=== PATIENT | male | born 1980 | race Asian ===

== ENCOUNTER 2019-07-13 16:02 | Inpatient (IN) | payer BC ==
[~2019-07-13] VITALS: Ht 182.9 cm; Wt 127.9 kg
[2019-07-13 16:10] LABS: Calcium, Ionized (POC) 1.01 mmol/L (1.10-1.46); Chloride (POC) 102 mmol/L (98-108); Creatinine (POC) 9.2 mg/dL (0.8-1.3); Glucose (ISTAT POC) 362 mg/dL (70-99); Hemoglobin (POC) 13.3 g/dL (13.5-17.5); Potassium (POC) 4.5 mmol/L (3.5-5.5); Sodium (POC) 137 mmol/L (135-148); Total CO2 (POC) 26 mmol/L (21-32)
[2019-07-13 16:18] LABS: Bicarbonate Venous 15.9 mmol/L (24.0-30.0); PCO2 Venous 59.3 mmHg (38-42); pH Blood Venous 7.12 (7.34-7.37)
[2019-07-13 16:42] LABS: BASOPHILS ABSOLUTE AUTO 0.12 K/mm3 (0.00-0.23); BASOPHILS PERCENT AUTO 1 % (0-2); EOSINOPHILS ABSOLUTE AUTO 0.44 K/mm3 (0.00-0.68); EOSINOPHILS PERCENT AUTO 3 % (0-6); Hematocrit 40.5 % (37.0-53.0); Hemoglobin 12.1 g/dL (13.5-17.5); IMMATURE GRAN ABSOLUTE AUTO 0.73 K/mm3 (0.00-0.10); IMMATURE GRAN PERCENT AUTO 5 % (0-1); LYMPHOCYTES ABSOLUTE AUTO 5.68 K/mm3 (0.84-5.20); LYMPHOCYTES PERCENT AUTO 39 % (21-46); MONOCYTES ABSOLUTE AUTO 0.96 K/mm3 (0.16-1.47); MONOCYTES PERCENT AUTO 7 % (4-13); Mean Corpuscular HGB 29.9 pg (26.0-34.0); Mean Corpuscular HGB Conc 29.9 g/dL (31.5-36.5); Mean Corpuscular Volume 100 fL (80-100); Mean Platelet Volume 12.6 fL (9.1-12.4); NEUTROPHILS ABSOLUTE AUTO 6.71 K/mm3 (1.96-9.15); NEUTROPHILS PERCENT AUTO 46 % (41-73); NRBC ABSOLUTE 0.29 K/mm3 (0.00-0.02); Platelet Count 276 K/mm3 (150-400); RDW Coefficient Variation 14.5 % (11.7-14.2); RDW Standard Deviation 52.7 fL (35.1-46.3); Red Blood Cell Count 4.05 M/mm3 (4.30-5.90); White Blood Cell Count 14.64 K/mm3 (4.00-11.30)
[2019-07-13 17:05] LABS: PCO2 Arterial 53.1 mmHg (35-45); pH Blood Arterial 7.26 (7.35-7.45)
[2019-07-13 17:09] LABS: Magnesium, Blood 3.3 mg/dL (1.6-2.4); Troponin I <0.015 ng/mL (0.000-0.040)
[2019-07-13 17:14] LABS: Alanine Aminotransfer (ALT/SGP 31 U/L (12-78); Albumin, Blood 2.6 g/dL (3.4-5.0); Albumin/Globulin Ratio 0.5 (0.8-1.8); Alk Phos 101 U/L (50-136); Anion Gap 17 mmol/L (6-16); Aspartate Aminotrans (AST/SGOT 46 U/L (12-37); Bilirubin, Total 0.2 mg/dL (0.1-1.0); Blood Urea Nitrogen 61 mg/dL (8-24); CO2, Blood 25 mmol/L (21-32); Calcium, Blood 9.3 mg/dL (8.5-10.1); Chloride, Blood 97 mmol/L (98-108); Creatinine, Blood 8.73 mg/dL (0.60-1.20); Globulin, Blood 5.1 g/dL (2.2-4.0); Glomerular Filtration Rate 6 (60-); Glucose, Blood 362 mg/dL (70-99); Potassium, Blood 4.5 mmol/L (3.5-5.5); Sodium, Blood 139 mmol/L (136-145); Total Protein, Blood 7.7 g/dL (6.4-8.2)
[2019-07-13 17:15] LABS: International Normalized Ratio 1.07; Prothrombin Time Results 11.3 Sec (9.7-11.5)
[2019-07-13 18:24] LABS: BASOPHILS ABSOLUTE AUTO 0.06 K/mm3 (0.00-0.23); BASOPHILS PERCENT AUTO 0 % (0-2); EOSINOPHILS ABSOLUTE AUTO 0.12 K/mm3 (0.00-0.68); EOSINOPHILS PERCENT AUTO 1 % (0-6); Hematocrit 32.2 % (37.0-53.0); Hemoglobin 10.2 g/dL (13.5-17.5); IMMATURE GRAN ABSOLUTE AUTO 0.33 K/mm3 (0.00-0.10); IMMATURE GRAN PERCENT AUTO 2 % (0-1); LYMPHOCYTES ABSOLUTE AUTO 1.08 K/mm3 (0.84-5.20); LYMPHOCYTES PERCENT AUTO 6 % (21-46); MONOCYTES ABSOLUTE AUTO 0.74 K/mm3 (0.16-1.47); MONOCYTES PERCENT AUTO 4 % (4-13); Mean Corpuscular HGB 29.7 pg (26.0-34.0); Mean Corpuscular HGB Conc 31.7 g/dL (31.5-36.5); Mean Platelet Volume 12.1 fL (9.1-12.4); NEUTROPHILS ABSOLUTE AUTO 15.89 K/mm3 (1.96-9.15); NEUTROPHILS PERCENT AUTO 87 % (41-73); Platelet Count 216 K/mm3 (150-400); RDW Coefficient Variation 14.5 % (11.7-14.2); RDW Standard Deviation 49.3 fL (35.1-46.3); Red Blood Cell Count 3.43 M/mm3 (4.30-5.90); White Blood Cell Count 18.22 K/mm3 (4.00-11.30)
[2019-07-13 18:26] LABS: Mean Corpuscular Volume 94 fL (80-100)
--- NOTE | 2019-07-13 18:48 | NUR ---
Echocardiogram completed.
[2019-07-13 18:59] LABS: PCO2 Arterial 55.7 mmHg (35-45); PO2 Arterial 63.6 mmHg (80-100); pH Blood Arterial 7.32 (7.35-7.45)
[2019-07-13 20:08] LABS: Albumin, Blood 2.5 g/dL (3.4-5.0); Albumin/Globulin Ratio 0.5 (0.8-1.8); Bilirubin, Total 0.4 mg/dL (0.1-1.0); Bun/Creatinine Ratio 6.8 (12.0-20.0); Calcium, Blood 8.5 mg/dL (8.5-10.1); Creatinine, Blood 9.44 mg/dL (0.60-1.20); Globulin, Blood 4.8 g/dL (2.2-4.0); Potassium, Blood 4.6 mmol/L (3.5-5.5); Total Protein, Blood 7.3 g/dL (6.4-8.2)
--- NOTE | 2019-07-13 20:13 | NUR ---
DIALYSIS WENT TO ER,TOLD THEY WOULD BE BRINGING PT TO ICU SOON, TOOK MY MACHINE TO ICU. HOOKED IT UP AND IT WENT THROUGH TEST. ASKED TO WAIT TO HOOK HIM UP UNTIL THEY GOT A POWER GLIDE IN. CONNECTED HIM TO DIALYSIS SOON THE POWER GLIDE WAS IN.
--- NOTE | 2019-07-13 22:30 | NUR ---
ADMIT NOTE: ASSUMED CARE OF PT AT 1910, RECEVIED REPORT FROM KAYODE NORTON AT BEDSIDE. PT ARRIVED TO THE UNIT ON A STRETCHER WITH ER NURSE PARKER AND RT ROLANDO. PT WAS THEN TRANSFERD OVER TO HOSPITAL BED WITH A SLIDER SHEET. PT WAS THEN PLACED ON VENTILATOR WITH SETTINGS AT AC12/500/12/100%. PT ALSO REQUIRED SUCTIONING ON ARRIVAL. PT HAD TWO 18G IV'S BOTH LOCATED IN AC'S, BOTH WERE DIFFICULT TO FULSH, THEREFORE A PICC WAS PLACED DUE TO MULTIPLE MEDICATIONS NEEDING TO BE INFUSED. PT WAS THEN PLACED ON 30MCG/KG/MIN OF PROPOFOL AT 192 WHICH WAS THEN INCREASED TO 50MCG AT 1927 DUE TO ELEVATED BLODD PRESSURE. PT HAS A TEMP OWENS IN PLACE WHICH IS DRAINING YELLOW CLEAR URINE. DIALYSIS SETTING UP IN THE ROOM. WILL CONTINUE TO MONITOR PT T/O SHIFT.
[2019-07-13 23:57] LABS: Source, Urine Catheter
[2019-07-13 23:59] LABS: Bilirubin, Urine Neg (Neg); Blood, Urine 5+ (Neg); Glucose Qualitative, Urine 4+ (Neg); Ketones, Urine 1+ (Neg); Leukocyte Esterase, Urine 1+ (Neg); Nitrite, Urine Neg (Neg); Protein, Urine 4+ (Neg); Urobilinogen, Urine NORM (Normal)
--- NOTE | 2019-07-14 | NUR ---
UPDATE NOTE: AT 2114 PT'S PROPOFOL WAS DECREASED TO 35MCG/KG/MIN DUE TO LOWERING BP. AT 2239 INCREASED TO 50MCG DUE TO ELEVATED BP. PHYSICAN WAS CALLED REGARDING ELEVATED BP, ORDERS WERE GIVEN AND PT WAS MEDICATED PER EMAR. PT WAS DECREASED TO 60%FIO2 WITH SP02 ABOVE 90%
[2019-07-14 00:11] LABS: Appearance, Urine Hazy (Clear); Color, Urine Yellow (P-Yellow); U Amphetamine Screen Not Detected; U Barbituate Screen Not Detected; U Benzodiazapine Screen Not Detected; U Buprenorphine Screen Not Detected; U Cannabinoids Screen Not Detected; U Cocaine Screen Not Detected; U Methadone Screen Not Detected; U Methamphetamine Screen Not Detected; U Opiates Screen Not Detected; U Oxycodone Screen Not Detected; U Phencyclidine Screen Not Detected; U Propoxyphene Screen Not Detected
[2019-07-14 00:13] LABS: Bacteria Few /hpf; Red Blood Cells, Urine TNTC /hpf (0-2); Squamous Epithelial Cells Not Seen /hpf (Few)
[2019-07-14 00:40] LABS: Albumin, Blood 2.3 g/dL (3.4-5.0); Albumin/Globulin Ratio 0.5 (0.8-1.8); Bilirubin, Total 0.4 mg/dL (0.1-1.0); Bun/Creatinine Ratio 7.2 (12.0-20.0); Calcium, Blood 8.1 mg/dL (8.5-10.1); Creatinine, Blood 7.75 mg/dL (0.60-1.20); Globulin, Blood 4.5 g/dL (2.2-4.0); Magnesium, Blood 2.5 mg/dL (1.6-2.4); Potassium, Blood 4.2 mmol/L (3.5-5.5); Total Protein, Blood 6.8 g/dL (6.4-8.2)
[2019-07-14] MEDS ORDERED: GABA100 PO (01:09)
[2019-07-14] MEDS ORDERED: Calcium Acetat667 MG PO ×3 (01:11→01:16)
[2019-07-14] MEDS ORDERED: MERIBIN5 MG PO (01:11)
[2019-07-14] MEDS ORDERED: LOSA50 PO (01:12)
[2019-07-14] MEDS ORDERED: THERA-D2000 UNIT PO (01:13)
[2019-07-14] MEDS ORDERED: NEBI5 PO (01:14)
[2019-07-14] MEDS ORDERED: Catapres0.2 MG PO (01:15)
[2019-07-14] MEDS ORDERED: FISH OIL OMEGA1 EAC2 PO (01:16)
[2019-07-14] MEDS ORDERED: Zocor20 MG PO (01:17)
[2019-07-14] MEDS ORDERED: FURO40 PO (01:18)
[2019-07-14] MEDS ORDERED: TRAM50 PO (01:19)
[2019-07-14] MEDS ORDERED: INSULANPEN SC ×2 (01:20)
[2019-07-14] MEDS ORDERED: Humalog100 UNIT/1 SC (01:21)
[2019-07-14 01:22] LABS: Adenovirus Not Detected (NOT DETECT); Bordetella pertussis Not Detected (NOT DETECT); Chlamydophila pneumoniae Not Detected (NOT DETECT); Coronavirus 229E Not Detected (NOT DETECT); Coronavirus HKU1 Not Detected (NOT DETECT); Coronavirus NL63 Not Detected (NOT DETECT); Coronavirus OC43 Not Detected (NOT DETECT); Human Metapneumovirus Not Detected (NOT DETECT); Human Rhinovirus/Enterovirus Not Detected (NOT DETECT); Influenza A Not Detected (NOT DETECT); Influenza A/2009-H1 Not Detected (NOT DETECT); Influenza A/H1 Not Detected (NOT DETECT); Influenza A/H3 Not Detected (NOT DETECT); Influenza B Not Detected (NOT DETECT); Mycoplasma pneumoniae Not Detected (NOT DETECT); Parainfluenza Virus 1 Not Detected (NOT DETECT); Parainfluenza Virus 2 Not Detected (NOT DETECT); Parainfluenza Virus 3 Not Detected (NOT DETECT); Parainfluenza Virus 4 Not Detected (NOT DETECT); Respiratory Syncytial Virus Not Detected (NOT DETECT)
[2019-07-14] MEDS ORDERED: Aspirin EC81 MG PO (01:22)
[2019-07-14] MEDS ORDERED: GLIP5 PO (01:23)
[2019-07-14] MEDS ORDERED: PRAV20 PO (01:23)
--- NOTE | 2019-07-14 04:50 | NUR ---
BP/CALL TO MD DR. CAGE NOTIFIED OF CONTINUED HYPERTENSION. NEW ORDERS RECEIVED.
[2019-07-14 05:34] LABS: BASOPHILS ABSOLUTE AUTO 0.01 K/mm3 (0.00-0.23); BASOPHILS PERCENT AUTO 0 % (0-2); EOSINOPHILS PERCENT AUTO 0 % (0-6); Hematocrit 30.1 % (37.0-53.0); Hemoglobin 10.1 g/dL (13.5-17.5); IMMATURE GRAN ABSOLUTE AUTO 0.07 K/mm3 (0.00-0.10); IMMATURE GRAN PERCENT AUTO 1 % (0-1); LYMPHOCYTES ABSOLUTE AUTO 1.23 K/mm3 (0.84-5.20); LYMPHOCYTES PERCENT AUTO 9 % (21-46); MONOCYTES ABSOLUTE AUTO 0.68 K/mm3 (0.16-1.47); MONOCYTES PERCENT AUTO 5 % (4-13); Mean Corpuscular HGB 29.8 pg (26.0-34.0); Mean Corpuscular HGB Conc 33.6 g/dL (31.5-36.5); Mean Corpuscular Volume 89 fL (80-100); Mean Platelet Volume 11.9 fL (9.1-12.4); NEUTROPHILS ABSOLUTE AUTO 11.74 K/mm3 (1.96-9.15); NEUTROPHILS PERCENT AUTO 85 % (41-73); Platelet Count 238 K/mm3 (150-400); RDW Coefficient Variation 14.4 % (11.7-14.2); RDW Standard Deviation 45.9 fL (35.1-46.3); Red Blood Cell Count 3.39 M/mm3 (4.30-5.90); White Blood Cell Count 13.73 K/mm3 (4.00-11.30)
[2019-07-14 05:50] LABS: PO2 Arterial 91.5 mmHg (80-100); pH Blood Arterial 7.56 (7.35-7.45)
[2019-07-14 05:57] LABS: Magnesium, Blood 2.5 mg/dL (1.6-2.4)
[2019-07-14 06:11] LABS: Alanine Aminotransfer (ALT/SGP 39 U/L (12-78); Albumin, Blood 2.2 g/dL (3.4-5.0); Albumin/Globulin Ratio 0.5 (0.8-1.8); Alk Phos 61 U/L (50-136); Anion Gap 11 mmol/L (6-16); Aspartate Aminotrans (AST/SGOT 48 U/L (12-37); Bilirubin, Total 0.4 mg/dL (0.1-1.0); Blood Urea Nitrogen 59 mg/dL (8-24); Bun/Creatinine Ratio 7.2 (12.0-20.0); CO2, Blood 28 mmol/L (21-32); Calcium, Blood 7.9 mg/dL (8.5-10.1); Chloride, Blood 96 mmol/L (98-108); Creatinine, Blood 8.25 mg/dL (0.60-1.20); Globulin, Blood 4.2 g/dL (2.2-4.0); Glomerular Filtration Rate 8 (60-); Glucose, Blood 303 mg/dL (70-99); Potassium, Blood 4.4 mmol/L (3.5-5.5); Sodium, Blood 135 mmol/L (136-145); Total Protein, Blood 6.4 g/dL (6.4-8.2)
[2019-07-14 06:12] LABS: Phosphorus, Blood 5.7 mg/dL (2.5-4.9)
--- NOTE | 2019-07-14 06:17 | NUR ---
SHIFT SUMMARY: PT CONTINUED TO HAVE AN ELEVATED BP, PHYSICAN WAS CALLED AND NEW ORDERS WERE GIVEN. PT HAS BEEN MEDICATED PER EMAR.LAST BP WAS 141/61 WITH HR IN THE 70'S. PT HAS NOT BEEN RESPONDING TO ANY VERBAL STIMULI AND HE DOES NOT SEEM TO BE MAKING ANY PURPOSEFUL MOVEMENT. VENT SETTINGS: AC24/500/12/50%, PT IS STILL COARSE T/O. PT RECEVIED DIALYSIS DURING THE SHIFT AND 3L WERE TAKEN OFF. LOW URINE OUTPUT NOTED WHICH IS EXPECTED. PT'S PRESSURE ULCER WAS CLEANED AND COVERED WITH MEPILEX DRESSING. PROPOFOL CURRENTLY RUNNING AT 50MCG/KG/MIN. BED AT LOWEST LEVEL. FAMILY IN ROOM, WILL CONTINUE TO MONITOR PT UNTIL REPORT IS GIVEN TO ONCOMING SHIFT.
--- NOTE | 2019-07-14 06:36 | NUR ---
SHIFT SUMMARY: PT CONTINUED TO BE ALERT AND ORIENTED T/O SHIFT. PT TOLERATED AIRVO WELL AND WAS ABLE TO GET REST. SETTINGS OF AIRVO ARE 60L/MIN WITH FIO2 OF 64%. PT DENIES ANY CHEST PAIN, DIZZINESS OR SOB AT THIS TIME. RR RANGING FROM 16-20 BMP. PT IS CURRENTLY IN NORMAL SINUS RYTHYM WITH HR IN THE 70'S. PT HAS BEEN C/O NECK AND BACK PAIN, SHE HAS BEEN MEDICATED PER EMAR. SHE HAS X/RAY SCHEDULED THIS MORNING ORDERED BY PHYSICAN. PT STATES THAT REPOSITIONING HELPS RELIEVE SOME OF THE PAIN. AND WORSENS WHEN SITTING/LAYING IN ONE POSITION FOR LONG PERIODS OF TIME. PT ALSO STATES THAT IT COMES AND GOES AND THAT IT IS CHRONIC. BED AT LOWEST LEVEL, CALL LIGHT WITHIN REACH. WILL CONTINUE TO MONITOR UNTIL REPORT IS GIVEN TO ONCOMING SHIFT.
--- NOTE | 2019-07-14 07:55 | NUR ---
ASSUMED CARE OF PT. REPORT FROM MARYANA/FRANKY RN. PT SEDATED AND INTUBATED. PROPOFOL INFUSING AT 50 MCG/KG/MIN VIA PICC. VENT SETTINGS AC 24/500/50%/12. TEMP PROP OWENS DRAINING CLEAR YELLOW URINE. OGT TUBE PATENT AND CLAMPED. PT c UPWARD GAZE, 2MM FIXED PUPILS, LEFT PUPIL SILVERMAN APPEARANCE. SO REPORTS PT BLIND IN LEFT EYE D/T DM. PROPOFOL PAUSED, PT c INCREASED UPPER BODY MYOCLONIC JERKING. ARMS FLEX INWARDS,WORSE ON LEFT. NO PURPOSEFUL MOVEMENTS, NO RESPONSE TO PAINFUL STIMULI. NO MOVEMENT TO LOWER EXTREMITIES. LUNGS COARSE THROUGHOUT. SCANT PINK TINGED SPUTUM c SUCTIONING. ORAL CARE PROVIDED. ABD ROUND, SOFT, BT HYPOACTIVE. PT c 3+ EDEMA TO BILATERAL EXTREMITIES. NO WEEPING NOTED. SKIN DRY, SCALING. 3-5 TOES TO LEFT FOOT AMPUTATED. MERIPLEX DRESSINGS TO HEALS. REPOSITIONED TO LEFT SIDE. DAMIEN RODRIGUEZ AT BEDSIDE. CALL LIGHT IN REACH.
--- NOTE | 2019-07-14 09:57 | NUR ---
DR POWERS AT BEDSIDE FOR ASSESSMENT. NO ACUTE CHANGES IN PT CONDITION. REMAINS INTUBATED AND SEDATED. REPEAT EKG DONE, CARDIOLOGY CONSULTED. EEG ORDERED STAT. ANTICIPATE HEAD CT IF NO NEUROLOGIC IMPROVEMENT TOMORROW. FIO2 DECREASED TO50%, PEEP 10,GOAL OF 40%/10.
--- NOTE | 2019-07-14 11:22 | NUR ---
AFTER MEDICATED c ATIVAN 2 MG IVP AND KEPPRA IVPB, NO ACUTE CHANGES. EYES REMAIN c UPWARD GAZE. FIO2 DECREASED TO 45%, PT REMAIN SEDATED c PROPOFOL 40 MCG/KG/MIN.
--- NOTE | 2019-07-14 13:32 | NUR ---
DR PEACE AT BEDSIDE. STAFF AWAITING EEG TESTING. FIO2 40%. NO ACUTE CHANGES.
--- NOTE | 2019-07-14 15:00 | NUR ---
CANE SPLICER AT BEDSIDE FAMILY IN WAITING ROOM FOR PROCEDURE. PT. PROPOFOL PLACED ON STAND BY AT 1515. APPROX 15 MIN AFTER SEDATION OFF, PT BEGAN TWITCHING MOVEMENTS AGAIN. CONTINUES TO BE UNRESPONSIVE. PROPOFOL RESTARTED POST EEG AT [address] CAGE AWARE
--- NOTE | 2019-07-14 16:00 | NUR ---
HYPOTENSION AND CENTRAL LINE PLACEMENT. PT REMAINS HYPOTENSIVE, 1L BOLUS INITIATED (4L TOTAL L OF NS), NILES AT BEDSIDE. CENTRAL LINE TO BE PLACED. LEVOPHED GTT STARTED AT 1505, 10 MCG/KG/MIN. ABG DRAWN,RESULTS TO DR CAGE. RT CALLED FOR BIPAP PLACEMENT. PER DR CAGE, 3 AMP BICARB GIVEN IVP, BICARB DRIP ORDERED. PER DR CAGE FENTANYL 25 MCG IVP AND VERSED 2 MG IVP GIVEN FOR CENTRAL LINE PLACEMENT. CENTRAL LINE PLACED TO RIGHT FEMORAL AT 1530. BIPAP PLACED, 14/8 30%. 5TH L OF NS BOLUS STARTED. LEVOPHED TITRATED TO 20 MCG/KG/MIN. HR REMAINS ELEVATED, 130'S. DR CAGE AWARE. PLAN FOR VASOPRESSIN GTT IF NEEDED. LABS DRAWN. PT TOLERATED PROCEDURE WELL. REMAINS DROWSY BUT WAKES TO VERBAL STIMULI. TOLERATING BIPAP MASK. COLOR IMPROVED. BED IN LOW POSITION. CALL LIGHT IN REACH. WILL CONTINUE TO MONITOR.
--- NOTE | 2019-07-14 16:30 | NUR ---
RICE DRYER MECHANIC AT BEDSIDE
[2019-07-14 17:29] LABS: Base Excess Venous 9.2 mmol/L; PCO2 Venous 46.1 mmHg (38-42); PO2 Venous 140 mmHg (38-42); pH Blood Venous 7.46 (7.34-7.37)
--- NOTE | 2019-07-14 18:00 | NUR ---
Spiritual Care note: Met pt's brother Francisco and his at bedside. Both were tearful when talking about Emanuel. Francisco tells me there are six other siblings. Their father was "a bad diabetic" according to Francisco, but in old age from complications from a head injury. Mom is alive, but in poor health in [place]. 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 Pt started dialysis five months ago. Francisco and his responded well to gentle in house counsel and assurance of excellent care and attenion. Francisco is clearly loving and devoted. More siblings to arrive soon. They are awaiting test results and prognosis. They are trying to remain hopeful. Encouraged self-care. Non-confucianism, but appreciative of emotional support. I will remain available.
--- NOTE | 2019-07-14 18:58 | NUR ---
SHIFT SUMMARY. PT REMAINS SEDATED AND INTUBATED. PROPOFOL INFUSING AT 40 MCG/KG/MIN THROUGH PICC. PT STARTED ON TUBE FEEDING TODAY. TEMP PROBE OWENS DRAINING SCANT AMOUNTS OF CLEAR YELLOW URINE. EEG COMPLETED TODAY. PER DR CARR BURST SUPPRESSION PATTERN NOTED c POOR PROGNOSIS. FAMILY AWARE OF RESULTS. DIALYSIS IN PROGRESS. PT CONTINUES TO HAVE NO PURPOSEFUL MOVEMENT. MYOCLONIC JERKING NOTED c DECREASING SEDATION. CONTINUES c UPWARD GAZE. INCREASING SCLERA EDEMA NOTED THROUGHOUT SHIFT. REPORT TO ONCOMING NURSE.
--- NOTE | 2019-07-14 20:49 | NUR ---
ASSUMED CARE NOTE: ASUMMED CARE OF PT AT 1900, RECEVIED REPORT FROM ARNOL. UPON ENTERING ROOM PT ON THE VENTILATOR WITH SETTINGS AT AC16/500/10/40%. PT RR WERE BETWEEN 18-20, SPO2 ABOVE 90%. PT IS CURRENTLY UNRESPONSIVE, AND UNABLE TO RESPOND TO VERBAL STIMULI. PROPOFOL RUNNING AT 40MCG/KG/MIN. FAMILY AT BEDSIDE, BED TO THE LOWEST LEVEL WILL CONTINUE TO MONITOR FOR CHANGES.
--- NOTE | 2019-07-14 22:57 | NUR ---
TUBE FEEDING: PT'S MOST RECENT TUBE FEEDING IS RUNNING AT GOAL RATE OF 25ML/HR OF VITAL HP. PT'S LAST RESIDUAL CHECK WAS 70ML/HR. PT SEEMS TO BE TOLERATING FEEDINGS, NO S/S OF GI INTOLERANCE. ACTIVE BOWEL SOUNDS IN ALL 4 QUADRANTS.
[2019-07-15 03:43] LABS: Hematocrit 29.4 % (37.0-53.0); Hemoglobin 9.6 g/dL (13.5-17.5)
[2019-07-15 04:05] LABS: Albumin, Blood 2.4 g/dL (3.4-5.0); Anion Gap 10 mmol/L (6-16); Blood Urea Nitrogen 55 mg/dL (8-24); Bun/Creatinine Ratio 7.5 (12.0-20.0); CO2, Blood 29 mmol/L (21-32); Calcium, Blood 7.7 mg/dL (8.5-10.1); Chloride, Blood 96 mmol/L (98-108); Glomerular Filtration Rate 9 (60-); Glucose, Blood 291 mg/dL (70-99); Magnesium, Blood 2.6 mg/dL (1.6-2.4); Potassium, Blood 3.7 mmol/L (3.5-5.5); Sodium, Blood 135 mmol/L (136-145)
[2019-07-15 06:09] LABS: COMPLEMENT C3, SERUM 96 mg/dL (82-167); COMPLEMENT C4, SERUM 25 mg/dL (14-44)
--- NOTE | 2019-07-15 06:10 | NUR ---
SHIFT SUMMARY: PT CONTINUES TO BE UNRESPONSIVE. PT CONTINUES TO HAVE JERKY MOVEMENTS, HOWEVER THEY ARE NOT PURPOSFUL. PT IS CURRENTLY ON THE VENTILATOR WITH SETTINGS AT AC16/500/10/40%. PT HAD A MODERATE AMOUNT OF THICK BLOOD TINGED SPUTUM. PT TEMP WAS BEEN INCREASING, LASTEST WAS 100.9, PT WAS MEDICATED PER EMAR. PT'S BP HAS BEEN ELEVATING T/O SHIFT DESPITE THE PRN MEDICATION GIVEN TO HELP DECREASE BP. WAS NOTIFIED, NO NEW ORDERS GIVEN AT THIS TIME. PT'S LATEST TUBE FEEDING RESIDUAL WAS 40ML. OWENS DRAINING LITTILE TO NO URINE. OWENS CATH IN PLACE AND SECURED. BED AT LOWEST LEVEL, FAMILY IN THE ROOM. WILL CONTINUE TO MONITOR UNTIL ONCOMING SHIFT.
--- NOTE | 2019-07-15 06:37 | NUR ---
UPDATE BP: SPOKE TO , SHE REQUESTED THAT AM CLONIDINE DOSE BE GIVEN EARLY.
--- NOTE | 2019-07-15 08:00 | NUR ---
INITIAL ASSESSMENT PATIENT INTUBATED AND ON SEDATION UPON FIRST ENTERING ROOM. PROPOFOL PLACED ON STANDBY AROUND 15 MINUTES AGO. PATIENT REMAINS UNRESPONSIVE, NO MOVEMENTS NOTED TO PAINFUL STIMULI OR NURSING CARE. NO COUGH, GAG, OR SWALLOW REFLEXES NOTED. PATIENT HAS FIXED UPWARD GAZE, SCLERAL EDEMA NOTED. LEFT PUPIL WHITE/ CLOUDY. FAMILY STATED THAT PATIENT IS BLIND IN THAT EYE FROM HIS DIABETES. NO SIGNS OF PAIN NOTED. PATIENT HAS TEMP OF 100.8 DEGREES FAHRENHEIT THIS AM. PATIENT SATTING 90% AND GREATER ON VENT SETTINGS OF AC 16, TV 500, PEEP 10, 40% FIO2. MODERATE AMOUNT OF THICK, YELLOW/ BLOODY SPUTUM BEING SUCTIONED FROM ETT. LUNGS CLEAR IN UPPER LOBES AND DIMINISHED IN LOWER LOBES. PATIENT IN SR, HR 80S TO 90S. SBP 140S TO 170S THIS AM. ABDOMEN MODERATELY DISTENDED, SOFT, APPEARS NONTENDER, WITH HYPOACTIVE BS NOTED. OG IN PLACE. VITAL HIGH PROTEIN INFUSING AT GOAL RATE OF 25 MLS/ HOUR WITH 30 ML WATER FLUSH Q4H. RESIDUAL OF 25 MLS OBTAINED AND REINSTILLED THIS AM. DATE OF LAST BM UNKNOWN. TEMP PROBE OWENS IN PLACE DRAINING VERY MINIMAL AMOUNT OF TEA COLORED URINE. BELOW THE KNEE SCALING, FLAKING AND REDNESS NOTED. ULCER TO L FOOT. SACRUM REDDENED- MEPILEX IN PLACE. LLE 3RD, 4TH, AND 5TH PHALANGES AMPUTATED. 3+ EDEMA NOTED IN BLES. 1+ EDEMA NOTED IN BUES. NS TKO. BED LOW, CALL LIGHT IN REACH. FAMILY AT BEDSIDE. WILL CONTINUE TO MONITOR PATIENT FREQUENTLY THROUGHOUT SHIFT.
--- NOTE | 2019-07-15 12:21 | NUR ---
PATIENT REMAINS UNRESPONSIVE, INTUBATED AND ON SEDATION. NO CHANGE IN NEURO STATUS. PATIENT HAS TEMP OF 99.1 DEGREES FAHRENHEIT. NO SIGNS OF PAIN OR DISCOMFORT. LUNGS COARSE THROUGHOUT. SMALL, THICK, BROWN SECRETIONS BEING SUCTIONED FROM ETT TUBE. PATIENT REMAINS SATTING 90% OR GREATER ON SAME VENT SETTINGS. PATIENT HR IN THE 80S. SBP IN THE 150S. OWENS DRAINING MINIMAL AMOUNT OF TEA COLORED URINE WITH SEDIMENT NOTED. PROPOFOL INFUSING AT 40 MCG/ KG/ MINUTE. NO OTHER ACUTE CHANGES TO NOTE ON AT THIS TIME. WILL CONTINUE TO MONITOR.
--- NOTE | 2019-07-15 12:58 | NUR ---
PATIENT TO CT WITH TRANSPORTERS, JAIL MANAGER, RT, AND PRIMARY RN.
[2019-07-15 13:07] LABS: ANTI-DSDNA ANTIBODIES <1 IU/mL (0-9); RNP ANTIBODIES <0.2 AI (0.0-0.9); SJOGREN'S ANTI-SS-A <0.2 AI (0.0-0.9); SJOGREN'S ANTI-SS-B <0.2 AI (0.0-0.9); SMITH ANTIBODIES <0.2 AI (0.0-0.9)
--- NOTE | 2019-07-15 13:15 | NUR ---
PATIENT BACK FROM CT.
[2019-07-15 14:10] LABS: Vancomycin, Random 20.4 ug/mL
--- NOTE | 2019-07-15 16:05 | NUR ---
NO CHANGE IN NEURO STATUS. PATIENT HAS TEMP OF 99.7 DEGREES FAHRENHEIT. HR IN THE 90S. SBP IN THE 160S. PO METOPROLOL GIVEN OT AND WILL START AGAIN IN AM. RESIDUAL OF 30 MLS OBTAINED AND REINSTILLED. NO OTHER ACUTE CHANGES TO NOTE ON AT THIS TIME. WILL CONTINUE TO MONITOR.
--- NOTE | 2019-07-15 16:21 | NUR ---
DR. CARSON AND PRIMARY NURSE IN ROOM TO HAVE CONVERSATION WITH FAMILY AT BEDSIDE. DR. CARSON INFORMED FAMILY OF RESULTS OF HEAD CT PERFORMED TODAY. DOCTOR ANSWERED ALL OF FAMILIES QUESTIONS. FAMILY STATED THAT THEY WOULD LIKE TO CONTINUE CARE BUT THAT IF PATIENT'S HEART WOULD TO STOP AT THIS POINT THAT THEY WOULD NOT LIKE FOR PATIENT TO BE RESUSCITATED.
--- NOTE | 2019-07-15 19:18 | NUR ---
SHIFT SUMMARY PATIENT REMAINED INTUBATED AND UNRESPONSIVE THROUGHOUT SHIFT. PATIENT PLACED ON SEDATION VACATION THIS SHIFT AND SHOWED NO IMPROVEMENT IN NEUROLOGICAL STATUS. PATIENT PLACED BACK ON SEDATION SBP INCREASED UP INTO 190S. PATIENT HAD TMAX OF 100.9 DEGREES FAHRENHEIT. PATIENT SHOWED NO SIGNS OF PAIN OR DISCOMFORT. PATIENT REMAINED SATTING 90% AND GREATER ON SAME VENT SETTINGS OF AC 16, TV 500, PEEP 10 AND 40% FIO2. PATIENT CONTINUED TO BREATH OVER VENT THIS SHIFT. SMALL TO MODERATE AMOUNT OF THICK, BROWN SPUTUM BEING SUCTIONED FROM ETT. PATIENT REMAINED IN SR, HR 80S TO 90S. SBP 130S TO 190S. BP MEDICATIONS CHANGED AROUND TODAY TO TRY AND CONTROL BETTER. PATIENT HAD LARGE, SOFT, BROWN BM THIS SHIFT. TF REMAINED INFUSING AT GOAL RATE. RESIDUALS 30 MLS AND BELOW. VERY MINIMAL AMOUNT OF TEA COLORED URINE WITH SEDIMENT OUT FROM TEMP PROBE OWENS. PATIENT HAD DIALYSIS TODAY AND HAD 3 L TAKEN OFF. NO CHANGE IN SKIN. PATIENT REPOSITIONED THROUGHOUT SHIFT. PROPOFOL INFUSING AT 40 MCG/ KG/ MINUTE, NS TKO. DR. CARSON TALKED TO FAMILY ABOUT HEAD CT RESULTS FROM TODAY. FAMILY WOULD LIKE TO GIVE PATIENT SOME MORE TIME TO TRY AND SHOW SOME IMPROVEMENT NEUROLOGICALLY. REPORT HAS BEEN GIVEN TO ASSUMING ASSEMBLY STOCK SUPERVISOR NURSE.
--- NOTE | 2019-07-15 19:21 | NUR ---
review of plan of care with nursing.
--- NOTE | 2019-07-15 20:00 | NUR ---
ASSUMED CARE NOTE: ASSUMED CARE AT 1900, RECEVIED REPORT FROM AMALIA NORTON. PT CONTINUES TO BE UNRESPONSIVE. NO NEROLOGICAL CHANGES NOTED. PT'S VENT SETTINGS: AC16/500/5/40% PT'S TUBE FEEDINGS RUNNING AT GOAL RATE. LAST RESIDUAL LESS THAN 60MLS. NO S/S OF GI DISTRESS. OWENS IN PLACE WITH VERY LOW URINE OUTPUT, DARK IN COLOR WITH SEDIMENT. PT IN SINUS RYTHYM WITH HR IN THE 80'S. PROPOFOL RUNNING AT 40MCG/KG/MIN. WILL CONTINUE TO MONITOR PT T/O SHIFT. FAMILY IN ROOM, BED AT LOWEST LEVEL.
[2019-07-16 04:32] LABS: Base Excess Venous 7.2 mmol/L; Bicarbonate Venous 30.4 mmol/L (24.0-30.0); PCO2 Venous 41.8 mmHg (38-42); PO2 Venous 130 mmHg (38-42); pH Blood Venous 7.48 (7.34-7.37)
[2019-07-16 04:34] LABS: BASOPHILS ABSOLUTE AUTO 0.05 K/mm3 (0.00-0.23); BASOPHILS PERCENT AUTO 1 % (0-2); EOSINOPHILS PERCENT AUTO 1 % (0-6); Hematocrit 28.6 % (37.0-53.0); Hemoglobin 9.1 g/dL (13.5-17.5); IMMATURE GRAN ABSOLUTE AUTO 0.04 K/mm3 (0.00-0.10); IMMATURE GRAN PERCENT AUTO 1 % (0-1); LYMPHOCYTES ABSOLUTE AUTO 1.43 K/mm3 (0.84-5.20); LYMPHOCYTES PERCENT AUTO 17 % (21-46); MONOCYTES ABSOLUTE AUTO 1.02 K/mm3 (0.16-1.47); MONOCYTES PERCENT AUTO 12 % (4-13); Mean Corpuscular HGB 29.4 pg (26.0-34.0); Mean Corpuscular HGB Conc 31.8 g/dL (31.5-36.5); Mean Platelet Volume 11.8 fL (9.1-12.4); NEUTROPHILS ABSOLUTE AUTO 5.84 K/mm3 (1.96-9.15); NEUTROPHILS PERCENT AUTO 69 % (41-73); Platelet Count 254 K/mm3 (150-400); RDW Coefficient Variation 14.6 % (11.7-14.2); RDW Standard Deviation 49.3 fL (35.1-46.3); Red Blood Cell Count 3.09 M/mm3 (4.30-5.90); White Blood Cell Count 8.48 K/mm3 (4.00-11.30)
[2019-07-16 04:36] LABS: Mean Corpuscular Volume 93 fL (80-100)
[2019-07-16 04:51] LABS: Albumin, Blood 2.5 g/dL (3.4-5.0); Anion Gap 9 mmol/L (6-16); Blood Urea Nitrogen 56 mg/dL (8-24); CO2, Blood 30 mmol/L (21-32); Calcium, Blood 8.1 mg/dL (8.5-10.1); Chloride, Blood 91 mmol/L (98-108); Creatinine, Blood 6.98 mg/dL (0.60-1.20); Glomerular Filtration Rate 10 (60-); Glucose, Blood 276 mg/dL (70-99); Magnesium, Blood 2.5 mg/dL (1.6-2.4); Phosphorus, Blood 6.3 mg/dL (2.5-4.9); Sodium, Blood 130 mmol/L (136-145)
--- NOTE | 2019-07-16 06:34 | NUR ---
SHIFT SUMMARY: PT CONTINUES TO BE UNRESPONSIVE. NO NEUROLOGICAL CHANGE NOTED. PT HAS BEEN HAVING THICK YELLOW/BROWN SPUTUM AND HAS NEEDED TO BE SUCTION MORE FREQUENTLY DURING SHIFT. PT LUNG SOUNDS HAVE BEEN COARSE T/O. PT HAS BEEN TOLERATING VENT WELL, SETTINGS AT AC16/500/5/40%. RR BETWEEN 18-25 BREATHS PER MIN. PT HAD THREE MED BOWEL MOVEMENTS DURING SHIFT. PT HAD 25ML OF URINE OUTPUT DURING SHIFT. PT HAD A TEMP OF 100.5 AT THE BEGINNING OF SHIFT WHICH HAS DECREASED TO 99.8 FAHRENHEIT AFTER BEING MEDICATED PER EMAR. PT IS IN SINUS RYTHYM WITH HR IN THE 80'S AND 90'S. BLOOD PRESSURE WAS ELEVATED AND PT WAS GIVEN MEDS PER EMAR. PROPOFOL RUNNING AT 40MCG/KG/MIN. BED AT LOWEST LEVEL, FAMILY IN ROOM. WILL CONTINUE TO MONITOR UNTIL REPORT IS GIVEN TO ONCOMING SHIFT.
--- NOTE | 2019-07-16 08:15 | NUR ---
IVF & TUBE FEEDS RUNNING: PROPOFOL @ 40 MCG/KG/MIN /C A DOSING WT OF 129KG NS @ TKO VITAL HP 1.0 JONATHAN @ 25 FEED RATE /C 30 ML WATER FLUGH Q4HR FEEDING NOTED TO BE AT GOAL RATE
--- NOTE | 2019-07-16 08:45 | NUR ---
SEDATION VACATION: PROPOFOL RAN OUT FOR LINE CHANGE, REMAINED OFF FOR APPROX 15 MIN. PT DID NOT FOLLOW COMMANDS OR RESPOND ANY BETTER THAN WHEN THE PROPOFOL WAS ON. PT ROTATED SHOLDERS IN AND ARMS DOWN WITH PAIN TO UPPER EXTREMITIES. PROPOFOL RESTARTED AFTER CHANGING THE LINE AT 40 MCG/KG/MIN
--- NOTE | 2019-07-16 10:53 | NUR ---
Patient is lying in bed and unresponsive. Patient has family bedside. I ask if there is anything I can do for them and said they need a miracle. I ask if I could pray for one. They agree to prayer. I pray for patient and comfort and God's embrace for family. I will continue to remain available to patient and family.
--- NOTE | 2019-07-16 13:39 | NUR ---
DIALYSIS AND UPDATE: PT RECEIVING DIALYSIS AT THIS TIME. O2 REQUIREMENTS HAVE INCREASED. FIO2 WAS INCREASED TO 50% AND IS SATTING IN LOW 90'S. NITRO HAS BEEN INCREASED TO 150 FROM 100 BLOOD PRESSURE IS NOTED TO BE SLOWLY DECREASING, BUT REMAINS WITH A SBP >160.
[2019-07-16 15:07] LABS: ATYPICAL PANCA <1:20 titer ({null, Neg:<1:20}); CYTOPLASMIC (C-ANCA) <1:20 titer ({null, Neg:<1:20}); PERINUCLEAR (P-ANCA) <1:20 titer ({null, Neg:<1:20})
--- NOTE | 2019-07-16 18:24 | NUR ---
SHIFT SUMMARY: BEEN ATEMPTING TO DECREASE PROPOFOL ALL DAY WITHOUT INCREASEING BP, PROPOFOL CURRENTLY AT 25MCG/KG/MIN. NITRO WAS STARTED THIS SHIFT TO HELP DECREASE THE BLOOD PRESSURE IN ORDER TO TITRATE THE PROPOFOL OFF. NITRO IS CURRENTLY SET AT 200 MCG/MIN. GOAL WAS TO ATTEMPT A WEAN, BUT D/T HIGH BLOOD PRESSURE, PROPOFOL NEEDS, AND SUDDEN INCREASED RESPRATORY REQUIRMENTS WEAN WAS PUT ON HOLD. PT HAS NOT BEEN NOTED TO MAKE PURPOSEFUL MOVEMENTS OTHER THAN PULLING AWAY FROM PAIN. PT HAS NOTE ATTEMPTED TO REACH UP FOR HIS ET TUBE, BUT TWITCHS HAVE BEEN NOTED BOTH IN THE LEGS AND FINGERS. BP REMAINS ELAVATED, BUT LOWER THAN THE BEGINNING OF THE SHIFT CURRENTLY 154/66. LOTS OF FAMILY AND FRIENDS HAVE BEEN AT BEDSIDE T/O THE DAY, EDUCATED ON THE NEED TO KEEP VISITORS 2 AT A TIME DURING DIALYSIS FAMILY AGREED AND COOPERATED VERY WELL. NO ACUTE DISTRESS NOTED. WILL CONTINUE TO MONITOR.
--- NOTE | 2019-07-16 22:42 | NUR ---
CARE ASSUMED CARE AND REPORT ASSUMED FROM KARLEE Díaz RN. PT INTUBATED AND PROPOFOL GTT INFUSING AT 25 MCG. NITRO GTT INFUSING AT 200 MCG; BP REMAINS ELEVATED AT 170S/90S. MD CARSON CALLED AND BP DISCUSSED. GOAL IS TO WEAN PT OFF PROPOFOL GTT AND MAINTAIN SBP BELOW 200. DURING SEDATION VACATION AT START OF SHIFT, PT BEGAN HAVING SPASTIC MOVEMENTS OF EXTREMITIES. WAS NOT ABLE TO FOLLOW ANY COMMANDS, DOES NOT RESPOND TO PAIN OR VERBAL STIMULI. WITH PROPOFOL OFF, PTS BP INCREASED GREATER THAN 200 AND PT CONTINUED TO HAVE SPASTIC MOVEMENTS WITH TEMP INCREASE AND HR INCREASE. PROPOFOL GTT NOW INFUSING AGAIN. NSR, HR 90S. METOPROLOL GIVEN PER TUBE. TF INFUSING AT GOAL RATE; RESIDUAL 240 ML OF DARK BROWN CONTENT. PT RECIVED BEDBATH AND LINEN CHANGE AND TURNED. RECIVEING BED CPT. WILL CONTINUE TO MONITOR.
--- NOTE | 2019-07-17 00:21 | NUR ---
REASSESSMENT PT REMAINS ON VENTILATOR AC 16, 500, PEEP 5, FIO2 40%. LUNG SOUNDS COARSE THROUGHOUT. PROPOFOL GTT REMAINS INFUSING AT 25 MCG TO HELP WITH SPONTANEOUS MUSCULAR MOVEMENTS WHEN OFF SEDATION. PUPILS REMAIN FIXED. TOLERATING TF AT GOAL RATE. HAS HAD 2 LARGE BOWEL MOVEMENTS SINCE START OF SHIFT. NITRO GTT REMAINS INFUSING AT 200 MCG; SEE FLOWSHEET FOR BP. REMAINS IN NSR, HR 80S. WILL CONTINUE TO MONITOR.
[2019-07-17 04:22] LABS: BASOPHILS ABSOLUTE AUTO 0.03 K/mm3 (0.00-0.23); BASOPHILS PERCENT AUTO 0 % (0-2); EOSINOPHILS PERCENT AUTO 0 % (0-6); Hemoglobin 8.9 g/dL (13.5-17.5); IMMATURE GRAN ABSOLUTE AUTO 0.07 K/mm3 (0.00-0.10); IMMATURE GRAN PERCENT AUTO 1 % (0-1); LYMPHOCYTES ABSOLUTE AUTO 1.01 K/mm3 (0.84-5.20); LYMPHOCYTES PERCENT AUTO 12 % (21-46); MONOCYTES ABSOLUTE AUTO 0.92 K/mm3 (0.16-1.47); MONOCYTES PERCENT AUTO 11 % (4-13); Mean Corpuscular HGB 29.2 pg (26.0-34.0); Mean Corpuscular HGB Conc 31.8 g/dL (31.5-36.5); Mean Corpuscular Volume 92 fL (80-100); Mean Platelet Volume 11.7 fL (9.1-12.4); NEUTROPHILS ABSOLUTE AUTO 6.24 K/mm3 (1.96-9.15); NEUTROPHILS PERCENT AUTO 76 % (41-73); Platelet Count 292 K/mm3 (150-400); RDW Coefficient Variation 14.3 % (11.7-14.2); RDW Standard Deviation 48.1 fL (35.1-46.3); Red Blood Cell Count 3.05 M/mm3 (4.30-5.90); White Blood Cell Count 8.27 K/mm3 (4.00-11.30)
[2019-07-17 04:43] LABS: Albumin, Blood 2.3 g/dL (3.4-5.0); Anion Gap 12 mmol/L (6-16); Blood Urea Nitrogen 53 mg/dL (8-24); Bun/Creatinine Ratio 8.7 (12.0-20.0); CO2, Blood 27 mmol/L (21-32); Calcium, Blood 7.8 mg/dL (8.5-10.1); Chloride, Blood 89 mmol/L (98-108); Glomerular Filtration Rate 11 (60-); Glucose, Blood 472 mg/dL (70-99); Magnesium, Blood 2.5 mg/dL (1.6-2.4); Potassium, Blood 4.7 mmol/L (3.5-5.5); Sodium, Blood 128 mmol/L (136-145)
--- NOTE | 2019-07-17 04:55 | NUR ---
WEAN TRIAL SEDATION VACATION X 45 MINUTES. PT REMAINS UNRESPONSIVE WITH SPORADIC MUSCULAR MOVEMENTS. NO S/S PAIN. WEAN LASTED 15 MINUTES; PT HAD VARIED TIDAL VOLUMES FROM 90-400, ALONG WITH INCREASED RESP RATE AND INCREASED BLOOD PRESSURE. PT NOW BACK ON AC MODE AND PROPOFOL GTT INFUSING AT 15 MCG. SPOKE WITH TRANSPLANT TEAM AND PROVIDED INFORMATION REQUESTED. PT REMAINS FULL TREATMENT BUT IS DNR.
[2019-07-17 05:08] LABS: PCO2 Arterial 40.3 mmHg (35-45); PO2 Arterial 90.8 mmHg (80-100); pH Blood Arterial 7.46 (7.35-7.45)
--- NOTE | 2019-07-17 06:45 | NUR ---
SHIFT SUMMARY PT REMAINED INTUBATED ENTIRE SHIFT. 2 SEDATION VACATIONS DURING SHIFT AND 15 MINUTE WEAN DONE DURING 2ND VACATION; SEE NOTE. UNRESPONSIVE ENTIRE SHIFT. WHEN OFF SEDATION, PT HAS SPASTIC MUSCULOSKELETAL MOVEMENTS. DURING ORAL CARE, PT CLENCHES TEETH AND SLIGHTLY MOVES HEAD SIDE TO SIDE. NO PURPOSEFUL MOVEMENTS. HAS REMAINED IN NSR, HR 80-90S. BP ELEVATED DURING SHIFT; MD AWARE. NITRO GTT INFUSED ENTIRE SHIFT A 200 MCG. PROPOFOL NOW INFUSING AT 15 MCG. TOLERATING TF AT GOAL RATE, RESIDUALS 240, 100, AND 100. NO RESTRAINTS; PT DOES NOT ATTEMPT IN ANY WAY TO REACH WITH UPPER EXTREMITIES. BED BATH AND LINEN CHANGE COMPELTED. CPT DONE FEW TIMES DURING NIGHT TOLERATED. PT HAD 4 SOFT, TARRY BOWEL MOVEMENTS. RECTAL TUBE INSERTED AT 0630. FAMILY SLEPT AT BEDSIDE. ANURIC DURING NIGHT; 50 ML FROM OWENS CATH. WILL GIVE, BEDSIDE, HANDOFF REPORT TO DAY RN.
--- NOTE | 2019-07-17 10:02 | NUR ---
0730: CARE ASSUMED, ASSESSMENT COMPLETED. PT REMAINS UNRESPONSIVE, NO RESPONSE TO PAIN, PUPILS FIXED. SPASTIC MOVEMENTS NOTED TO UPPER EXTREMETIES WITH REPOSITIONING, NO MOVEMENT NOTED IN LE'S. ALL EXTREMS ARE STIFF. NO GAG/COUGH/SWALLOW NOTED WITH ORAL CARE. VENT SETTINS AC 16, Vt 400, PEEP 5, FIO2 40%. PT'S Vt'S 500'S, RR 21, SPO2 97%. NITRO INFUSING AT 200MCG/MIN, BP 174/78. PROPOFOL 15MCG/KG/MIN. DIALYSIS PORT TO RIGHT CHEST WITHOUT S/SX INFECTION, DRESSING CDI. FAMILY AT BEDSIDE. 0800: CPT INITIATED PER ORDERS. LS COARSE IN BASES. 1000: BM LEAKING AROUND RECTAL TUBE, PT CLEANED, LINENS CHANGED, ATTENDS UNDER PATIENT. RECTAL TUBE FLUSHED, CPT INITIATED, DIALYSIS NURSE AT BEDSIDE ADMINISTERING 1U PRBC'S AND PERFORMING DIALYSIS. 1015: DR. CARSON AT BEDSIDE, DISCUSSING PLAN OF CARE WITH FAMILY. NO CHANGES NOTED TO NEURO STATUS.
--- NOTE | 2019-07-17 12:25 | NUR ---
DIALYSIS COMPLETED, SEDATION VACATION INITIATED AT 1145. CPT STARTED AT NOON. 1215 NEURO ASSESSMENT REVEALS UNEQUAL FIXED PUPILS, NO EYE MOVEMENT, NO RESPONSE TO PAINFUL STIMULI. 1230: DR. CARSON AT BEDSIDE TO ASSESS, SMALL AMOUNT OF EYE MOVEMENT NOTED, NO OTHER CHANGES. BABINKSI REFLEX NOT PRESENT. SBP 197, PROPOFOL RESUMED AT 15MCG/KG/HR.
--- NOTE | 2019-07-17 14:26 | NUR ---
ETT SUCTIONING PERFORMED, PT COUGHED AND TURNED HEAD AWAY FROM STIMULUS DURING SUCTIONING. PUPILS REMAIN FIXED, 2MM BILATERALLY, NO PAIN RESPONSE. BP 157/62, HR 90'S SINUS.
--- NOTE | 2019-07-17 15:41 | NUR ---
BP'S CONSISTENTLY 140'S-150'S/60'S-70'S. WILL TITRATE PROPOFOL AND NITRO GTT ABLE. VENT SETTINGS UNCHANGED, PT REMAINS UNRESPONSIVE TO PAIN WITH MINIMAL MOVEMENT PRESENT IN UE'S.
--- NOTE | 2019-07-17 16:47 | NUR ---
CT COMPLETED, PT BACK TO ICU 12 WITHOUT INCIDENT. PT REPOSITIONED, ORAL CARE COMPLETED, REASSESSED. LS CLEAR AT THIS TIME, VENT SETTINGS UNCHANGED.
--- NOTE | 2019-07-17 18:29 | NUR ---
AFTER PT RETURNED FROM CT, AN EPISODE OF DECERBRATE POSTURING WAS NOTED IN THE BUE'S, PT ALSO HAVING OCCASIONAL SPASTIC MOVEMENTS IN BUE'S AND LLE, DOES NOT ATTEMPT TO PULL AT LINES/TUBES. PROPOFOL HAS BEEN TITRATED OFF, BP 161/69, HR 98 SINUS, NITRO GTT REMAINS AT 200MCG/MIN. DR. CARSON DISCUSSED CT RESULTS WITH S/O AND FAMILY MEMBERS, NO NEW DECISIONS FOR PLAN OF CARE MADE AT THIS TIME. PT REPOSITIONED AND HAD CPT [id number] THIS SHIFT. DRESSINGS TO BILAT FEET REMAIN CDI, OWENS AND RECTAL TUBE PATENT. TF INFUSING AT 25ML/HR WITH FLUSHES PER ORDERS, RESIDUALS 85ML AND LESS TODAY. PUPILS REMAIN FIXED, THOUGH PT HAS BEEN COUGHING THIS AFTERNOON WITH ETT SUCTIONING AND APPEARS TO TURN HEAD AWAY FROM ORAL CARE. NO EYE OPENING, NO WITHDRAWL FROM PAINFUL STIMULI. REPORT TO ONCOMING SHIFT.
--- NOTE | 2019-07-17 18:50 | NUR ---
VENT SETTING ERROR: Vt ON VENT SET TO 500 ALL SHIFT.
--- NOTE | 2019-07-17 19:18 | NUR ---
ASSUMED CARE RECEIVED REPORT FROM YURY NORTON. PT IS INTUBATED ON VENT AC16/500/5/35%. CURRENT GTTPS: NITROGLYCERIN 200MCG/MIN, AND NS TKO INFUSING THROUGH PICC LINE IN LEFT UPPER ARM, SITE LOOKS CDI. THERE IS AN 18G LEFT AC PERIPHERAL IV SALINE LOCKED. CURRENTLY RECEIVING TUBE FEEDING OF VITAL HIGH PROTEIN AT GOAL RATE OF 25ML/HR, WITH Q4H 30 CC FLUSHES. PT HAS PATENT OWENS HANGING TO GRAVITY ALONG WITH A PATENT RECTAL TUBE HANGING TO GRAVITY. HEEL PROTECTORS ARE ON BILTERAL HEELS. NO PURPOSEFUL MOVEMENT NOTED. VITALS CURRENTLY STABLE, BP IS ELEVATED BUT IS EXPECTED. BED IS LOW AND LOCKED. NO FAMILY CURRENTLY AT BEDSIDE.
[2019-07-18 00:15] LABS: Glucose (ISTAT POC) >700 mg/dL (70-99)
[2019-07-18 00:18] LABS: Glucose, Blood 787 mg/dL (70-99)
[2019-07-18 00:42] LABS: Alanine Aminotransfer (ALT/SGP 13 U/L (12-78); Albumin, Blood 2.2 g/dL (3.4-5.0); Albumin/Globulin Ratio 0.5 (0.8-1.8); Alk Phos 52 U/L (50-136); Anion Gap 15 mmol/L (6-16); Aspartate Aminotrans (AST/SGOT 81 U/L (12-37); Bilirubin, Total 0.4 mg/dL (0.1-1.0); Blood Urea Nitrogen 45 mg/dL (8-24); Bun/Creatinine Ratio 9.2 (12.0-20.0); CO2, Blood 24 mmol/L (21-32); Calcium, Blood 7.1 mg/dL (8.5-10.1); Chloride, Blood 82 mmol/L (98-108); Creatinine, Blood 4.88 mg/dL (0.60-1.20); Globulin, Blood 4.3 g/dL (2.2-4.0); Glomerular Filtration Rate 14 (60-); Potassium, Blood 3.8 mmol/L (3.5-5.5); Sodium, Blood 121 mmol/L (136-145); Total Protein, Blood 6.5 g/dL (6.4-8.2)
[2019-07-18 01:45] LABS: BASOPHILS ABSOLUTE AUTO 0.03 K/mm3 (0.00-0.23); BASOPHILS PERCENT AUTO 0 % (0-2); EOSINOPHILS ABSOLUTE AUTO 0.01 K/mm3 (0.00-0.68); EOSINOPHILS PERCENT AUTO 0 % (0-6); Hematocrit 27.7 % (37.0-53.0); Hemoglobin 8.8 g/dL (13.5-17.5); IMMATURE GRAN ABSOLUTE AUTO 0.08 K/mm3 (0.00-0.10); IMMATURE GRAN PERCENT AUTO 1 % (0-1); LYMPHOCYTES PERCENT AUTO 10 % (21-46); MONOCYTES PERCENT AUTO 8 % (4-13); Mean Corpuscular HGB 29.6 pg (26.0-34.0); Mean Corpuscular HGB Conc 31.8 g/dL (31.5-36.5); Mean Corpuscular Volume 93 fL (80-100); Mean Platelet Volume 11.4 fL (9.1-12.4); NEUTROPHILS ABSOLUTE AUTO 7.78 K/mm3 (1.96-9.15); NEUTROPHILS PERCENT AUTO 80 % (41-73); Platelet Count 291 K/mm3 (150-400); RDW Coefficient Variation 14.9 % (11.7-14.2); RDW Standard Deviation 51.8 fL (35.1-46.3); Red Blood Cell Count 2.97 M/mm3 (4.30-5.90)
[2019-07-18 02:10] LABS: Magnesium, Blood 2.2 mg/dL (1.6-2.4)
[2019-07-18 02:11] LABS: Albumin, Blood 2.1 g/dL (3.4-5.0); Anion Gap 15 mmol/L (6-16); Blood Urea Nitrogen 50 mg/dL (8-24); Bun/Creatinine Ratio 9.7 (12.0-20.0); CO2, Blood 24 mmol/L (21-32); Chloride, Blood 76 mmol/L (98-108); Creatinine, Blood 5.17 mg/dL (0.60-1.20); Glomerular Filtration Rate 13 (60-); Glucose, Blood 914 mg/dL (70-99); Phosphorus, Blood 6.7 mg/dL (2.5-4.9); Sodium, Blood 115 mmol/L (136-145)
[2019-07-18 03:45] LABS: Source, Urine Catheter
[2019-07-18 03:48] LABS: Bilirubin, Urine Neg (Neg); Blood, Urine 4+ (Neg); Glucose Qualitative, Urine 4+ (Neg); Ketones, Urine Neg (Neg); Leukocyte Esterase, Urine 1+ (Neg); Nitrite, Urine Neg (Neg); Protein, Urine 4+ (Neg); Specific Gravity, Urine 1.015 (1.003-1.022); Urobilinogen, Urine NORM (Normal)
[2019-07-18 03:51] LABS: Glucose, Blood 331 mg/dL (70-99)
[2019-07-18 03:53] LABS: Appearance, Urine Clear (Clear); Color, Urine Yellow (P-Yellow); Red Blood Cells, Urine 50-100 /hpf (0-2); Squamous Epithelial Cells Not Seen /hpf (Few); White Blood Cells, Urine 25-50 /hpf (0-5)
[2019-07-18 03:54] LABS: Bacteria Many /hpf
--- NOTE | 2019-07-18 04:54 | NUR ---
ACUTE EVENT AROUND 2300 OF 07/17/19 PT BECAME TACHYCARDIC (105-120), MORE HYPERTENSIVE (SBP 190-215), FEBRILE (FROM 98.6 UP TO 101.5), DIAPHORETIC (SOAKING WET), AND HYPERGLYCEMIC (787 AT 0000). PT WAS BECOMING ASYNCHRONOUS WITH THE VENT AT THIS TIME, HOWEVER WAS MAINTAINING O2 SATS (91-93% DURING THIS TIME). FENTANYL (2 DOSES), HYDRALAZINE, AND TYLENOL WERE GIVEN. PROPOFOL WAS TURNED BACK ON (SEE FLOW SHEET). FAN AND ICE PACKS WERE ALSO APPLIED TO PATIENT. PLACED CALL TO DR. CARSON - STARTED HIM ON AN INSULIN DRIP AT 3 UNITS/KG/HR, AND MONTY LABS AND CULTURES. SODIUM CAME BACK 115 AND A GLUCOSE OF 914. INSULIN WAS TURNED UP TO 10UNITS/KG/HR. NS WAS STARTED AT 150ML/HR. AROUND ~0200 PT STARTED TOLERATING VENTILATOR WELL, AND WENT INTO NSR RATE, SLOWLY DECREASING FROM >100 TO 80'S. OF RIGHT NOW PT IS MORE HEMODYNAMICALLY STABLE. AFEBRILE. NOT TACHYPNEIC. HOWEVER, AROUND 0450 BLOOD SUGAR WAS 311, A DRASTIC DROP FROM 914. INSULIN ON STANDBY. THERE ARE NO CHANGES IN HIS NEURO STATUS THAT I AM AWARE OF. WILL CONTINUE TO MONITOR BLOOD SUGARS, AND NEURO STATUS. BED IS LOW AND LOCKED. BROTHER AT BEDSIDE.
[2019-07-18 05:02] LABS: PCO2 Arterial 41.5 mmHg (35-45); PO2 Arterial 95.4 mmHg (80-100); pH Blood Arterial 7.45 (7.35-7.45)
--- NOTE | 2019-07-18 07:39 | NUR ---
SHIFT SUMMARY PT REMAINS INTUBATED ON VENT AC16/500/5/35%. CURRENT GTTPS: NITROGLYCERIN 200MCG/MIN, NS 150ML/HR, AND PROPOFOL 35MCG/KG/MIN. HE HAS BEEN UNRESPONIVE, MOVING SLIGHTLY, NONPURPOSEFULLY. HE HAS BEEN IN THE DECEREBRATE POSTURE FOR THE MAJORITY OF THE NIGHT. SEE NEURO ASSESMENT FOR IN DEPTH DETAILS. ALSO SEE PREVIOUS NURSES NOTE FOR LAST NIGHT'S ACUTE EVENT. PT IS CURRENTLY NSR, RATE IN THE 80'S. BP HAS DROPPED TO A MANAGEABLE RANGE (SEE VS). LUNGS ARE STILL COARSE, AND NOT PRODUCING MUCH SPUTUM FROM THE ET TUBE. A TRACHEAL AND NASAL ASPIRATE CULTURE WAS SENT TO LAB LAST NIGHT. PT IS RECEIVING VITAL HIGH PROTEIN TUBE FEEDING AT GOAL RATE OF 25ML/HR, WITH Q4H 30CC FLUSHES OF WATER VIA OG TUBE. PT HAD DIALYSIS YESTERDAY, AND WILL HAVE IT AGAIN TODAY. HE HAD 50ML UOP IN [place]. PT IS LESS DIAPHORETIC THAN HE WAS LAST NIGHT, BUT STILL IS MOIST. BROTHER STAYED OVER LAST NIGHT. BED IS LOW AND LOCKED.
--- NOTE | 2019-07-18 12:59 | NUR ---
DR CARSON INTO EVALUATE PT AND SPEAK WITH FAMILY. PT CONDITION EXPLAINED TO FAMILY. FAMILY DECIDED TO MOVE TO COMFORT CARE WITH CLERICAL TRANSCRIBER TO COME AND PRAY FIRST. PT FAMILY WILL SHARE WHEN THEY ARE READY TO PROCED TO COMFORT CARE. [employer] ALSO CALLED AND THEY DECLINED ORGANS REFERING TO POSSIBLE EYE DONATIONS AT TIME OF . WILL AWAITE FAMILY TIMING OF PROCEDING.
--- NOTE | 2019-07-18 13:07 | NUR ---
PT TO GO ON COMFORT CARE. VERBAL ORDER RECEIVED FROM DR. CARSON. PARTIAL MEDICATIONS HAVE BEEN DISCONTINUED. FAMILY AND [employer]INEER AT BEDSIDE. AWAITING FURTHER ORDERS
--- NOTE | 2019-07-18 16:12 | NUR ---
1545 PT EXTUBATED NOW. PT PLACE ON R.A. FAMILY AT BEDSIDE. PT NOT SHOWING ANY SIGNS OF RESP DISTRESS WITH RR 20-22. DEEP ORAL SX DONE AND PT RR EASED AT THIS TIME. NO DISTRESS NOTED.
--- NOTE | 2019-07-18 16:16 | NUR ---
PT RR IS 28-REA W/O SEVER DISTRESS. SATS NOTED AT 59% AND FAMILY REMAINS IN ROOM. WILL FOLLOW.
--- NOTE | 2019-07-18 17:07 | NUR ---
PT REPOSITIONED, ORAL SUCTION PERFORMED BY ERROL HODGE. O2 SATS 69% ON RA. FAMILY AT BEDSIDE. WILL FOLLOW UP
--- NOTE | 2019-07-18 18:20 | NUR ---
PT HR 87, RR 30, O2 SAT 76% ON RA. PT IN NO APPARENT DISTRESS, BREATHING WITHOUT ANY PURPOSEFUL MOVEMENTS. PT REMAINS CLEAN AND DRY. FAMILY AT BEDSIDE. WILL FOLLOW UP.
--- NOTE | 2019-07-19 01:11 | NUR ---
LT UPPER ARM PICC LINE. RT UPPER CHEST WALL VAS CATH INTACT
--- NOTE | 2019-07-19 02:36 | NUR ---
ASSUMED CARE RECEIVED REPORT FROM SANDY NORTON. PT IS ON COMFORT CARE. FAMILY MEMBER SLEEPING IN ROOM. PT APPEARS TO BE IN NO DISTRESS. WILL MONITOR FOR ANY S/S OF PAIN, OR DISCOMFORT. WILL MANAGE SECRETIONS BEST POSSIBLE. WILL REPOSITION EVERY 2 HOURS.
--- NOTE | 2019-07-20 11:42 | NUR ---
review with pastoral cre for family follow up
[2019-07-20 12:07] LABS: ANTIMYELOPEROXIDASE (MPO) ABS <9.0 U/mL (0.0-9.0)
== END 2019-07-19 05:10 ==
LOC: ER 16:02 → ICUW 17:16
PROVIDERS: Emergency Medicine; Internal Medicine Critical Care Medicine; Internal Medicine Nephrology; Internal Medicine Pulmonary Disease; Nurse Practitioner Acute Care; ADMIT Internal Medicine
PROC: 5A12012 Performance of Cardiac Output, Single, Manual (ICD-10-PCS; principal; 2019-07-13)
PROC: 0BH17EZ Insertion of Endotracheal Airway into Trachea, Via Natural or Artificial Opening (ICD-10-PCS; 2019-07-13)
PROC: 5A1955Z Respiratory Ventilation, Greater than 96 Consecutive Hours (ICD-10-PCS; 2019-07-13)
PROC: 5A1D90Z Performance of Urinary Filtration, Continuous, Greater than 18 hours Per Day (ICD-10-PCS; 2019-07-15)
DX: I44.2 Atrioventricular block, complete (principal); N18.6 End stage renal disease; I21.A1 Myocardial infarction type 2; G92 Toxic encephalopathy; J96.01 Acute respiratory failure with hypoxia; J15.211 Pneumonia due to Methicillin susceptible Staphylococcus aureus; I50.31 Acute diastolic (congestive) heart failure; G93.1 Anoxic brain damage, not elsewhere classified; E87.2 Acidosis; R65.10 Systemic inflammatory response syndrome (SIRS) of non-infectious origin without acute organ dysfunction; I16.1 Hypertensive emergency; E87.1 Hypo-osmolality and hyponatremia; N25.81 Secondary hyperparathyroidism of renal origin; N17.9 Acute kidney failure, unspecified; I12.0 Hypertensive chronic kidney disease with stage 5 chronic kidney disease or end stage renal disease; Z51.5 Encounter for palliative care; Z66 Do not resuscitate; Z89.422 Acquired absence of other left toe(s); E11.22 Type 2 diabetes mellitus with diabetic chronic kidney disease; E03.9 Hypothyroidism, unspecified; E78.5 Hyperlipidemia, unspecified; E66.01 Morbid (severe) obesity due to excess calories; Z79.82 Long term (current) use of aspirin; Z79.4 Long term (current) use of insulin; E83.51 Hypocalcemia; E87.70 Fluid overload, unspecified; E66.9 Obesity, unspecified; Z68.29 Body mass index [BMI] 29.0-29.9, adult; E11.65 Type 2 diabetes mellitus with hyperglycemia; H55.03 Visual deprivation nystagmus; D63.1 Anemia in chronic kidney disease
CPT/HCPCS: 0099U; 31720; 36415; 36430; 36569; 36600; 51702; 70450; 71045; 71260; 80047; 80053; 80069; 80202; 81001; 82330; 82550; 82803; 82947; 83520; 83605; 83735; 83880; 84100; 84145; 84443; 84484; 85014; 85018; 85025; 85610; 85730; 86038; 86160; 86225; 86235; 86256; 86850; 86900; 86901; 86923; 87040; 87070; 87077; 87081; 87086; 87186; 87205; 87493; 92950; 93005; 93010; 93306; 94002; 94003; 95819; 96374-59; 96375-59; 99291-25; 99292; A9270; C1751; C9113; J0360; J0610; J0690; J0881; J1644; J1815; J1953; J2060; J2543; J2704; J3010; J3370; J7030; J7050; P9016; P9046; Q9967